=== PATIENT | male | born 1945 | race Caucasian/White ===

== ENCOUNTER 2024-01-16 13:20 | Emergency (ER) | payer SELFPAY ==
[2024-01-16 13:22] VITALS: BP 143/70; BMI 25.4
--- NOTE | 2024-01-16 13:49 | ED.GENMED ---
History of Present Illness
General
Chief Complaint: Swelling
Time Seen by Provider: 01/16/24 13:28
History of Present Illness
History of Present Illness:
78-year-old male with history of dementia, hypertension, and hyperlipidemia presents to the emergency department for evaluation of lower extremity swelling. Patient's dementia makes history very unreliable, new to this health network. Staff
reported to EMS that the leg particular the left looks more swollen over the past 2 weeks. Apparently his bradycardia is normal for him. He denies leg pain
Review of Systems
Review of Systems
Allergies reviewed?: Yes
All Other Systems: ROS reviewed and negative except as documented in HPI and ROS
Phy Exam
Physical Exam
Physical Exam:
GEN: Well appearing, NAD, WDWN
Eyes: PERRLA, EOMs intact, no scleral icterus
HENT: NCAT, oral mucosa moist
Lungs: CTAB, no wheezes, rales, rhonchi, normal chest wall excursion
Cardiac: RRR, no M/R/G, no peripheral edema. Radial pulses 2+ bilat
Neuro: Alert, follows commands, moves all extremities freely, profoundly confused
MSK: No gross deformity or ecchymosis. Moderate to severe edema of the left lower extremity with mild edema of the right lower extremity. Dorsalis pedis pulses are 2+ bilaterally, calf compartments are soft x 4 bilaterally with no tenderness, no
erythema noted
Skin: No rashes, petechiae. Normal color, no pallor or jaundice.
Psych: Calm, cooperative, proper hygiene
Scores
Heart Failure Risk
Heart Failure Risk Score: Not Applicable
Course
Orders/Labs/Results
Orders:
Orders
01/16/24 13:43
Complete Blood Count/With Diff Urgent
Comprehensive Metabolic Panel Urgent
01/16/24 13:49
Venous Doppler Lwr Ext Left [US Periph Venous LOWER Ext LT] Urgent
Comment:
Reason For Exam: LLE swelling
01/16/24 13:50
Electrocardiogram (*1) Urgent
Reason for Study: Bradycardia / Tachycardia
EKG- Treatment ONCE
Abnormal Lab Results
01/16/24
13:43
WBC 3.4 L 10^3/uL
(4.8-10.8)
RBC 3.33 L 10^6/uL
(4.70-6.10)
Hgb 10.8 L g/dL
(13.0-18.0)
Hct 32.0 L %
(39.0-52.0)
MCV 96.1 H fL
(80.0-94.0)
MCH 32.4 H pg
(27.0-31.0)
RDW 15.3 H %
(11.5-14.5)
Plt Count 46 L 10^3/uL
(130-400)
MPV 12.0 H fL
(7.4-10.4)
Absolute Neuts (auto) 1.3 L 10^3/uL
(1.4-6.5)
Neutrophils % 36.8 L %
(42.2-75.2)
Lymphocytes % 57.3 H %
(20.5-51.1)
Total Protein 6.0 L g/dl
(6.3-8.2)
01/16/24 13:43
01/16/24 13:43
Vital Signs
Initial and Last Documented VS:
Initial Vital Signs
Temp Pulse Resp BP Pulse Ox
98.8 F 46 20 143/70 96
01/16/24 13:22 01/16/24 13:22 01/16/24 13:22 01/16/24 13:22 01/16/24 13:22
Last Documented Vital Signs
Temp Pulse Resp BP Pulse Ox
98.8 F 46 17 141/73 95
01/16/24 13:22 01/16/24 14:00 01/16/24 14:00 01/16/24 14:00 01/16/24 14:00
MDM/Problems Addressed
MDM/Problems Addressed:
No clinical signs of cellulitis. Ultrasound negative for DVT. Strong dorsalis pedis pulses rules out arterial pathology. Likely asymmetric venous stasis, discussed supportive care with daughter via phone
*Critical Care Note
Total Time (30-74mins, 75-104mins- exclusive of procedures): Not Applicable
ED Attending Note
-
Portions of this chart may have been created with voice recognition software.� Occasional wrong word or��sound alike� substitutions may have occurred due to the inherent limitations of voice recognition software.
Discharge Plan
Departure
Patient Disposition: Home (Routine Discharge)
Date of Disposition: 01/16/24
Time of Disposition: 16:08
Patient with high blood pressure during this ER visit?: No
Discharge Problem:
Bilateral leg edema
Instructions: Dependent Edema (DC)
Prescriptions:
No Action
quetiapine [Seroquel] 25 mg Tablet
12.5 mg PO BID
sennosides [senna] 8.6 mg Tablet
8.6 mg PO HS
donepezil 10 mg Tablet
10 mg PO HS
sertraline 100 mg Tablet
100 mg PO DAILY
Theragen Tablet
1 tab PO DAILY
omeprazole 40 mg Capsule,Delayed Release(Dr/Ec)
40 mg PO DAILY
simvastatin [Zocor] 20 mg Tablet
20 mg PO HS
losartan 25 mg Tablet
12.5 mg PO DAILY
hydralazine 50 mg Tablet
50 mg PO BID
gabapentin 100 mg Capsule
100 mg PO HS
mirabegron 25 mg Tablet Extended Release 24 Hr
25 mg PO DAILY
tramadol 25 mg Tablet
25 mg PO BID
Referrals:
Jerry Dickinson DO [Family Provider] -
Activity Restrictions/Additional Instructions:
Legs need to be elevated often
You may try compression stockings to limit fluid build up
Monitor for redness and pain that could indicate infection
Interventions
Interventions:
*Risk Screen - Suicide Last Done: 01/16/24 13:30
*General Assessment Last Done: 01/16/24 13:30
*Neglect/Abuse Screening Last Done: 01/16/24 13:30
ED- Fall Risk Assessment Last Done: 01/16/24 13:50
*Nursing Disposition Last Done: 01/16/24 18:36
ED- Cardiac Assessment Last Done: 01/16/24 13:31
ED- Pulmonary Assessment Last Done: 01/16/24 13:31
ED-Skin Assessment Last Done: 01/16/24 13:31
Discharge Date and Time
Discharge Date/Time: 01/16/24 18:40
Print Language: HONDURAN
[2024-01-16 14:00] VITALS: BP 141/73
[2024-01-16 14:05] LABS: ALT (SGPT) 22 U/L (0-50); AST (SGOT) 25 U/L (17-59); Albumin 3.8 g/dl (3.5-5.0); Alkaline Phosphatase 62 U/L (38-126); Blood Urea Nitrogen 18 mg/dl (9-20); Calcium 8.7 mg/dl (8.4-10.2); Carbon Dioxide 29 mmol/L (22-30); Chloride 105 mmol/L (98-107); Estimated Creatinine Clearance 76 ml/min; Glucose 91 mg/dl (70-99); Potassium 3.9 mmol/L (3.5-5.1); Sodium 140 mmol/L (135-145); eGFR > 60.00
[2024-01-16 14:07] LABS: Hemoglobin 10.8 g/dL (13.0-18.0); Mean Corp Hgb Conc. 33.8 g/dL (33.0-37.0); Mean Corpuscular Hgb 32.4 pg (27.0-31.0); Mean Corpuscular Volume 96.1 fL (80.0-94.0); Red Blood Cell Count 3.33 10^6/uL (4.70-6.10); Red Cell Dist. Width 15.3 % (11.5-14.5); White Blood Cell Count 3.4 10^3/uL (4.8-10.8)
[2024-01-16 14:48] LABS: % Basophils 0.6 % (0-2); % Eosinophils 1.2 % (0-6); % Immature Granulocytes 0.3 % (0-0.5); % Lymphocytes 57.3 % (20.5-51.1); % Monocytes 3.8 % (1.7-9.3); % Neutrophils 36.8 % (42.2-75.2); Absolute Monocytes 0.1 10^3/uL (0.1-0.6); Absolute Neutrophils 1.3 10^3/uL (1.4-6.5); Nucleated Red Blood Cells % 1.2 % (-)
[2024-01-16 14:51] LABS: Platelet Count 46 10^3/uL (130-400)
== END 2024-01-16 18:40 | disposition home or self-care (01) ==
LOC: EMR 13:20
PROVIDERS: EMERGENCY PHYSICIAN Emergency Medicine; FAMILY PHYSICIAN Internal Medicine Geriatric Medicine
DX: R60.0 Localized edema (principal); R00.1 Bradycardia, unspecified; F03.90 Unspecified dementia, unspecified severity, without behavioral disturbance, psychotic disturbance, mood disturbance, and anxiety; I10 Essential (primary) hypertension; E78.5 Hyperlipidemia, unspecified
CPT/HCPCS: 99284; 80053; 85025; 93005; 93971